=== PATIENT | female | born 1990 | race Two or more races ===

== ENCOUNTER 2023-08-16 13:40 | Outpatient (CLI) | payer OTHER | END 2023-08-16 16:40 | disposition home or self-care (01) | LOC: PRENATAL 13:40 | PROVIDERS: ATTEND Obstetrics & Gynecology Maternal & Fetal Medicine | DX: O36.80X0 Pregnancy with inconclusive fetal viability, not applicable or unspecified (principal); O26.859 Spotting complicating pregnancy, unspecified trimester; Z3A.01 Less than 8 weeks gestation of pregnancy ==

== ENCOUNTER 2023-09-22 14:35 | Outpatient (CLI) | payer OTHER | END 2023-09-22 14:37 | disposition home or self-care (01) | LOC: PRENATAL 14:35 | PROVIDERS: ATTEND Obstetrics & Gynecology Maternal & Fetal Medicine | DX: O36.80X0 Pregnancy with inconclusive fetal viability, not applicable or unspecified (principal); Z36.82 Encounter for antenatal screening for nuchal translucency; Z36 Encounter for antenatal screening of mother ==

== ENCOUNTER 2023-11-10 13:12 | Outpatient (CLI) | payer OTHER | END 2023-11-10 13:14 | disposition home or self-care (01) | LOC: PRENATAL 13:12 | PROVIDERS: ATTEND Obstetrics & Gynecology Maternal & Fetal Medicine | DX: O35.3XX0 Maternal care for (suspected) damage to fetus from viral disease in mother, not applicable or unspecified (principal); O44.00 Complete placenta previa NOS or without hemorrhage, unspecified trimester; O34.10 Maternal care for benign tumor of corpus uteri, unspecified trimester; Z3A.20 20 weeks gestation of pregnancy ==